=== PATIENT | male | born 1960 | race Caucasian/White ===

== ENCOUNTER → 2023-09-19 09:44 | Outpatient (REF) | payer OTHER, SELFPAY | LOC: RCS 09:44 | PROVIDERS: ATTENDING PHYSICIAN Internal Medicine Cardiovascular Disease; FAMILY PHYSICIAN Family Medicine | DX: I10 Essential (primary) hypertension (principal); R07.89 Other chest pain; E11.9 Type 2 diabetes mellitus without complications | CPT/HCPCS: 93017; 93350 ==

== ENCOUNTER 2024-10-28 09:12 | Emergency (ER) | payer OTHER, SELFPAY ==
[2024-10-28 09:39] VITALS: BP 185/111
[2024-10-28 09:57] VITALS: BMI 25.1
[2024-10-28 10:22] LABS: Hematocrit 45.1 % (39.0-52.0); Hemoglobin 16.2 g/dL (13.0-18.0); Mean Corp Hgb Conc. 35.9 g/dL (33.0-37.0); Mean Corpuscular Volume 92.4 fL (80.0-94.0); Nucleated Red Blood Cells % 0 % (-); Platelet Count 158 10^3/uL (130-400); Red Cell Dist. Width 12.7 % (11.5-14.5)
[2024-10-28 10:28] LABS: INR 1.01; PT 13.8 Sec (11.4-14.6)
[2024-10-28 10:29] LABS: APTT 40.0 Sec (23.4-35.0)
--- NOTE | 2024-10-28 10:39 | ED.GENMED ---
History of Present Illness
<Vita Bray PA-C - Last Filed: 10/28/24 17:06>
General
Chief Complaint: Chest Pain
Source: patient
Exam Limitations: none
Time Seen by Provider: 10/28/24 09:33
Nursing documentation reviewed up to this point in time: agreed with
History of Present Illness
History of Present Illness:
see MDM
Past History
<MADAN Ruiz Last Filed: 10/28/24 17:06>
Past History
ED Past Medical History: HTN, NIDDM (Metformin 500 mg daily), Other (diverticulitis ) and Other (AAA)
ED Past Surgical History: Appendectomy, Cholecystectomy and Orthopedic
Social History
Tobacco: Former smoker
Alcohol: Occasional
Drug: None
Personal:
Living: with family
Employment: Employed (sales)
Family History
Family History: Other (Noncontributory)
Review of Systems
<MADAN Ruiz Last Filed: 10/28/24 17:06>
Review of Systems
Allergies reviewed?: Yes
All Other Systems: Not applicable
Phy Exam
<MADAN Ruiz Last Filed: 10/28/24 17:06>
Physical Exam
Physical Exam:
GENERAL: Alert , in no apparent distress,
HEAD: ncat
FACE: No droop
EYE: pupils equal and reactive, no eyelid ptosis,
NECK: Supple
ENT: o/p clr, mmm.
no trouble swallowing
CARDIAC: Regular rate and rhythm .no murmur
LUNGS: Clear breath sounds bilaterally, no acute respiratory distress, no wheezes/rales/rhonchi
ABDOMEN: Soft, without focal tenderness, no r/g, no cvat, normal bowel sounds
NEUROLOGICAL: Alert and oriented, no focal neuro deficits
SKIN: Warm and dry, skin intact.
MUSCULOSKELETAL: No edema, well perfused. neg lalo's sign
PSYCH: Normal and appropriate interaction.
Scores
<Vita Bray PA-C - Last Filed: 10/28/24 17:06>
Heart Score for Chest Pain Patients
STEMI patient?: No
History: Moderately Suspicious
ECG: Normal
Age: >45 - <65 years
Risk Factors: >/= 3 Risk Factors or History of CAD
Troponin: </= Normal Limit
Heart Score for Chest Pain Patients: 4
Heart Score Risk: 20.3% MACE over next 6 weeks
Course
<Vita Bray PA-C - Last Filed: 10/28/24 17:06>
Orders/Labs/Results
Orders:
Orders
10/28/24 09:13
Electrocardiogram (*1) Urgent
Reason for Study: Chest Pain
EKG- Treatment ONCE
10/28/24 09:50
CT Chest/abd/pelvis Angio W/wo Urgent
Comment:
Reason For Exam: HTN, ARM WEAKNESS, CP, H/O AAA
Cardiac Monitoring- Treatment ONCE
10/28/24 09:59
Complete Blood Count/With Diff Urgent
Comprehensive Metabolic Panel Urgent
Lipase Urgent
NT-proBNP Urgent
PTT Urgent
Prothrombin Time Urgent
TSH Urgent
Troponin I Urgent
10/28/24 13:48
MuSK IgG Ab CBA, Serum Reflex [S] Urgent
Abnormal Lab Results
10/28/24
09:59
MCH 33.2 H pg
(27.0-31.0)
MPV 11.0 H fL
(7.4-10.4)
Absolute Lymphs (auto) 0.9 L 10^3/uL
(1.2-3.4)
Neutrophils % 77.3 H %
(42.2-75.2)
Lymphocytes % 14.3 L %
(20.5-51.1)
APTT 40.0 H Sec
(23.4-35.0)
Glucose 170 H mg/dl
(70-99)
ALT 81 H U/L
(0-50)
Lipase 398 H U/L
(23-300)
10/28/24 09:59
10/28/24 09:59
Vital Signs
Initial and Last Documented VS:
Initial Vital Signs
Temp Pulse Resp Pulse Ox
36.7 C 69 16 98
10/28/24 09:24 10/28/24 09:24 10/28/24 09:24 10/28/24 09:24
Last Documented Vital Signs
Temp Pulse Resp BP Pulse Ox
36.7 C 73 11 132/77 95
10/28/24 09:24 10/28/24 12:00 10/28/24 12:00 10/28/24 12:00 10/28/24 12:00
<Constantin Chung, DO - Last Filed: 10/28/24 13:13>
Orders/Labs/Results
Orders:
Orders
10/28/24 09:13
Electrocardiogram (*1) Urgent
Reason for Study: Chest Pain
EKG- Treatment ONCE
10/28/24 09:50
CT Chest/abd/pelvis Angio W/wo Urgent
Comment:
Reason For Exam: HTN, ARM WEAKNESS, CP, H/O AAA
Cardiac Monitoring- Treatment ONCE
10/28/24 09:59
Complete Blood Count/With Diff Urgent
Comprehensive Metabolic Panel Urgent
Lipase Urgent
NT-proBNP Urgent
PTT Urgent
Prothrombin Time Urgent
TSH Urgent
Troponin I Urgent
10/28/24 13:48
MuSK IgG Ab CBA, Serum Reflex [S] Urgent
Abnormal Lab Results
10/28/24
09:59
MCH 33.2 H pg
(27.0-31.0)
MPV 11.0 H fL
(7.4-10.4)
Absolute Lymphs (auto) 0.9 L 10^3/uL
(1.2-3.4)
Neutrophils % 77.3 H %
(42.2-75.2)
Lymphocytes % 14.3 L %
(20.5-51.1)
APTT 40.0 H Sec
(23.4-35.0)
Glucose 170 H mg/dl
(70-99)
ALT 81 H U/L
(0-50)
Lipase 398 H U/L
(23-300)
10/28/24 09:59
10/28/24 09:59
Vital Signs
Initial and Last Documented VS:
Initial Vital Signs
Temp Pulse Resp Pulse Ox
36.7 C 69 16 98
10/28/24 09:24 10/28/24 09:24 10/28/24 09:24 10/28/24 09:24
Last Documented Vital Signs
Temp Pulse Resp BP Pulse Ox
36.7 C 73 11 132/77 95
10/28/24 09:24 10/28/24 12:00 10/28/24 12:00 10/28/24 12:00 10/28/24 12:00
<Vita Bray PA-C - Last Filed: 10/28/24 17:06>
MDM/Problems Addressed
Differential Diagnosis Includes:
see MDM
MDM/Problems Addressed:
Note:
CHIEF COMPLAINT(S)
Heaviness in chest and arms, fatigue.
HISTORY OF PRESENT ILLNESS
The patient is a 64-year-old male presenting with symptoms beginning earlier this week. Around 5 days ago, he noticed heaviness in his arms, which would resolve intermittently. However, within the past 2-3 days he developed a heaviness across his
chest without accompanying pain, prompting concern. He describes a feeling of being 'tired' and lacking energy, which has progressively worsened this week. He typically walks two and a half miles a day with his dogs but noticed increased fatigue
during these walks. He denies any chest pain exacerbated by exertion, but acknowledges occasional shortness of breath after activity. While driving to work today, he felt unwell, prompting a call to his primary care provider. He has not reported
palpitations or significant changes in posture-related symptoms, although he occasionally experiences dizziness if standing up too quickly, previously attributed to his medication. No significant weight gain, lower extremity edema, or recent
infections were reported.
CHRONIC MEDICAL CONDITIONS SIGNIFICANTLY AFFECTING CARE
- Right ventricular outflow tract tachycardia
- Abdominal aortic aneurysm (not surgically treated)
- Hypertension
- Diabetes Mellitus
MEDICATIONS
- Bisoprolol 5 mg
- Januvia 100 mg daily
- Jardiance 10 mg daily
- Rosuvastatin
- Ozempic
PHYSICAL EXAM
- General: He appeared slightly fatigued but in no acute distress.
- Cardiovascular: Blood pressure is elevated; the patient is not experiencing palpitations.
- Neurological: No significant weakness, normal pupil response, muscle strength intact upon resistance tests.
- Nursing notes reviewed and vital signs reviewed.
PLAN
1. Perform diagnostic imaging of the aorta to rule out any significant aortic concerns.
2. Conduct blood tests, including enzyme markers, to exclude myocardial infarction and assess for anemia.
3. Continue monitoring blood pressure closely and further examine cardiovascular status.
4. Evaluate for other causes of fatigue and manage appropriately.
DIFFERENTIAL DIAGNOSIS
The Differential Diagnosis includes, in no particular order and is not limited to:
1. Coronary artery disease
2. Abdominal aortic aneurysm expansion
3. Heart failure
4. Anemia
5. Hypothyroidism
6. Chronic obstructive pulmonary disease
7. Medication side effects (beta-jose carlos related)
8. Deconditioning
9. Sleep apnea
10. Pulmonary embolism
10/28/24 - 13:12
The patients recent CAT scan shows a stable ascending aortic aneurysm at 4.1 cm, with no current plans for intervention. Cardiac tests including blood work and EKG are normal, reducing the likelihood of a heart-related issue. Elevated lipase levels
were noted, but do not indicate pancreatitis. The patient, currently on a GLP-1 medication, does not experience significant abdominal discomfort. Though feeling unwell and experiencing arm weakness, the patient exhibits no neurological weakness,
swallowing problems, or eyelid issues, which could suggest myasthenia gravis. Monitoring for potential symptoms and consulting a ginner helper promptly is advised, as a note will be sent to facilitate this appointment. The patient is reminded of
activity restrictions due to aneurysm concerns, specifically advised against lifting heavy objects. Encouragement to return to the ER if new symptoms such as facial drooping, fatigue, trouble swallowing, double vision, or severe neck pain develop.
<Vita Bray PA-C - Last Filed: 10/28/24 17:06>
*Pulse Oximetry
SaO2: 99
Oxygen Mode of Delivery: Room air
Patient hypoxic: no (95)
*Critical Care Note
Total Time (30-74mins, 75-104mins- exclusive of procedures): Not Applicable
ED Attending Note
<Vita Bray PA-C - Last Filed: 10/28/24 17:06>
-
Portions of this chart may have been created with voice recognition software.� Occasional wrong word or��sound alike� substitutions may have occurred due to the inherent limitations of voice recognition software.
<Constantin Chung DO - Last Filed: 10/28/24 13:13>
ED Attending Note
Patient seen and examined by attending physician: Yes
I performed the substantive portion of visit, reviewed & personally made and approve the management plan that is documented in note by myself or REANNA.: Yes
ED Attending Note:
I evaluated the patient at bedside. The patient is very well-appearing. He is hypertensive but otherwise has a relatively unremarkable ED workup. Informed him of the slightly elevated lipase which may be related to GLP-1 agonist used.
Discharge Plan
Departure
Patient Disposition: Home (Routine Discharge)
Date of Disposition: 10/28/24
Time of Disposition: 13:15
Patient with high blood pressure during this ER visit?: No
Condition: Fair
Covid-19: Not Applicable
Discharge Problem:
Arm heaviness, Chest pain
Instructions: Chest Pain CBC Follow Up
Prescriptions:
No Action
aspirin 81 MG tablet,delayed release (DR/EC)
81 mg PO DAILY 0RF
lisinopril 5 MG tablet
5 mg PO DAILY Qty: 30 3RF
rosuvastatin 20 MG tablet
20 mg PO QPM Qty: 30 3RF
Janumet 1 EACH tablet
1 tab PO BID Qty: 0 0RF
metoprolol tartrate [Lopressor] 50 MG tablet
50 mg PO BID Qty: 60 11RF
acetaminophen [Tylenol] 325 mg Tablet
650 mg PO Q4HPRN PRN (Reason: leg pains)
Referrals:
Michael Oliver DO [Family Provider, Family Practice] - Follow up in 2-3 days
Activity Restrictions/Additional Instructions:
Were not sure exactly what is causing your symptoms. You had a stable ascending thoracic aortic aneurysm at 4.1 cm. He had a negative troponin and a normal EKG. Your blood pressure improved over time. Your lipase was minimally elevated which
could be from the Ozempic. You can try clear liquids for 24 hours and bland food as tolerated after that
Should you get any worsening symptoms you should return
Especially for eyelid droopiness, trouble swallowing, trouble breathing, worsening weakness, numbness or tingling, severe chest pain or shortness of breath, fever, double vision or any concerns.
I am sending a test for evaluation for something called myasthenia gravis which you do not have objective signs of today but just in case things progress, this may be helpful. It is a send out test and you will get a phone call only if it is
abnormal
Interventions
Interventions:
*Risk Screen - Suicide Last Done: 10/28/24 09:24
*General Assessment Last Done: 10/28/24 09:24
*Neglect/Abuse Screening Last Done: 10/28/24 09:24
*ED- Fall Risk Assessment Last Done: 10/28/24 09:56
*ED COVID-19 Vaccine History Last Done: 10/28/24 09:56
*Nursing Disposition Last Done: 10/28/24 13:56
ED- Cardiac Assessment Last Done: 10/28/24 09:56
Discharge Date and Time
Discharge Date/Time: 10/28/24 13:56
Print Language: GABONESE
[2024-10-28 10:41] LABS: Troponin I < 0.012 ng/ml
[2024-10-28 10:49] LABS: ALT (SGPT) 81 U/L (0-50); AST (SGOT) 44 U/L (17-59); Albumin 5.0 g/dl (3.5-5.0); Alkaline Phosphatase 53 U/L (38-126); Blood Urea Nitrogen 14 mg/dl (9-20); Calcium 9.7 mg/dl (8.4-10.2); Carbon Dioxide 28 mmol/L (22-30); Chloride 107 mmol/L (98-107); Estimated Creatinine Clearance 105 ml/min; Glucose 170 mg/dl (70-99); Lipase 398 U/L (23-300); Potassium 4.8 mmol/L (3.5-5.1); Sodium 141 mmol/L (135-145); Total Protein 7.4 g/dl (6.3-8.2); eGFR > 60.00
[2024-10-28 10:55] VITALS: BP 132/77
[2024-10-28 10:58] VITALS: BP 132/77
[2024-10-28 11:00] VITALS: BP 121/77
[2024-10-28 11:07] LABS: TSH 2.05 uIU/ml (0.47-4.68)
[2024-10-28 12:00] VITALS: BP 132/77
[2024-11-02 02:23] LABS: MuSK IgG Ab CBA IFA, Serum <1:10 (<1:10)
== END 2024-10-28 13:56 | disposition home or self-care (01) ==
LOC: EMR 09:12
PROVIDERS: Physician Assistant; EMERGENCY PHYSICIAN Emergency Medicine; FAMILY PHYSICIAN Family Medicine
DX: R07.9 Chest pain, unspecified (principal); M79.9 Soft tissue disorder, unspecified; E11.9 Type 2 diabetes mellitus without complications; I10 Essential (primary) hypertension; Z87.891 Personal history of nicotine dependence; I71.21 Aneurysm of the ascending aorta, without rupture; R74.8 Abnormal levels of other serum enzymes
CPT/HCPCS: 99284; 71275; 74174; 80053; 83690; 83880; 84443; 84484; 85025; 85610; 85730; 86366; 93005; Q9967

== ENCOUNTER → 2024-11-19 07:09 | Outpatient (REF) | payer OTHER, SELFPAY | LOC: RCS 07:09 | PROVIDERS: ATTENDING PHYSICIAN Nurse Practitioner; FAMILY PHYSICIAN Family Medicine | DX: R07.89 Other chest pain (principal); I25.10 Atherosclerotic heart disease of native coronary artery without angina pectoris; I10 Essential (primary) hypertension | CPT/HCPCS: 78452; 93017; A9500; J2785 ==